=== PATIENT | female | born 1980 | race Two or more races ===

== ENCOUNTER 2021-02-22 15:35 | Emergency (ER) | payer BC ==
[~2021-02-22] VITALS: Ht 167.6 cm; Wt 10.4 kg
[2021-02-22] MEDS ORDERED: ONDANSETRON HCL 4 MG TABLET PO ONE (16:15)
[2021-02-22] MEDS ORDERED: ACETAMINOPHEN 500 MG TABLET PO ONE (16:15)
[2021-02-22] MEDS ORDERED: LIDOCAINE 5% TRANSDERMAL PATCH TD ONE (17:15)
[2021-02-22 18:41] VITALS: BP 120/80
== END 2021-02-22 18:43 | disposition home or self-care (01) ==
LOC: EMS 15:35
DX: S09.90XA Unspecified injury of head, initial encounter (principal); W01.198A Fall on same level from slipping, tripping and stumbling with subsequent striking against other object, initial encounter; Y93.89 Activity, other specified; Y92.89 Other specified places as the place of occurrence of the external cause; Y99.8 Other external cause status; F17.210 Nicotine dependence, cigarettes, uncomplicated; F31.9 Bipolar disorder, unspecified; E11.9 Type 2 diabetes mellitus without complications; I10 Essential (primary) hypertension; R56.9 Unspecified convulsions
CPT/HCPCS: 70450; 72125; 81025; 99284; Q0162; 99285